=== PATIENT | male | born 1960 | race African-American/Black ===

== ENCOUNTER 2020-09-18 08:29 | Inpatient (IN) | payer OTHER ==
[2020-09-18 09:17] VITALS: BMI 34.4
[2020-09-18] MEDS ORDERED: METHOCARBAMOL 500 MG TABLET PO PRN (09:33)
[2020-09-18] MEDS ORDERED: MAGNESIUM HYDROX 2400MG/30ML ORAL SUSPENSION 30 ML CUP PO PRN (09:33)
[2020-09-18] MEDS ORDERED: MAG HYDROX/AL HYDROX/SIMETH 30 ML UNIT-DOSE CUP PO PRN (09:33)
[2020-09-18] MEDS ORDERED: ACETAMINOPHEN 325 MG TABLET (FP) PO PRN ×2 (09:33)
[2020-09-18] MEDS ORDERED: MAGNESIUM CITRATE 300 ML BOTTLE PO PRN (09:33)
[2020-09-18] MEDS ORDERED: MENTHOL/PHENOL 1 EACH UD MM PRN (09:33)
[2020-09-18] MEDS ORDERED: IBUPROFEN 400 MG TABLET (FP) PO PRN (09:33)
[2020-09-18] MEDS ORDERED: ONDANSETRON *ODT* 4 MG TABLET SL PRN (09:33)
[2020-09-18] MEDS ORDERED: NICOTINE POLACRILEX 2 MG GUM BUC PRN (09:33)
[2020-09-18] MEDS ORDERED: BISMUTH SUBSALICYLATE 262 MG/15 ML BTL PO PRN (09:33)
[2020-09-18] MEDS ORDERED: chlordiazePOXIDE HCL 25 MG CAPSULE PO PRN (09:33)
[2020-09-18] MEDS ORDERED: ONDANSETRON *ODT* 4 MG TABLET SL ONE (09:36)
[2020-09-18] MEDS: HYDROCHLOROTHIAZIDE 25 MG TABLET (FP) PO SCH (11:27)
[2020-09-18] MEDS: hydrOXYzine PAMOATE 25 MG CAPSULE (FP) PO SCH ×4 (11:27→22:37)
[2020-09-18] MEDS: chlordiazePOXIDE HCL 25 MG CAPSULE PO SCH ×3 (11:27→22:36)
[2020-09-18] MEDS: PRENATAL VITAMINS W/ FOLIC ACID TABLET (FP) PO SCH (11:29)
[2020-09-18] MEDS: NICOTINE 7 MG/24 HOURS TOPICAL PATCH TD SCH (11:29)
[2020-09-18] MEDS: CHOLESTYRAMINE/SUCROSE 4 GM PACKET PO SCH (11:33)
[2020-09-18 13:15] LABS: POTASSIUM 4.3 mmol/L (3.5-5.1)
[2020-09-18 13:18] LABS: HEMATOCRIT 36.7 % (35.4-49); HEMOGLOBIN 11.7 GM/dL (11.7-16.9); MCH 27.6 pg (25.7-33.7); MEAN CELL VOLUME 86.3 fl (80-96); MEAN PLT VOLUME 8.5 fl (7.5-11.1); PLATELET COUNT 232 K/MM3 (134-434); RBC 4.25 M/mm3 (4.00-5.60); RDW 16.4 % (11.9-15.9); WHITE BLOOD COUNT 11.1 K/mm3 (4.0-10.0)
[2020-09-18 13:22] LABS: ALBUMIN 3.7 g/dl (3.4-5.0); BLOOD UREA NITROGEN 8.6 mg/dL (7-18); CALCIUM 8.7 mg/dL (8.5-10.1)
[2020-09-18 13:25] LABS: CREATININE 0.9 mg/dL (0.55-1.3)
[2020-09-18 13:27] LABS: BILIRUBIN,TOTAL 0.8 mg/dL (0.2-1)
[2020-09-18 14:11] LABS: HIV INTERPRETATION NEGATIVE (NEGATIVE)
[2020-09-18] MEDS: MELATONIN 5 MG TABLETS PO SCH (22:36)
[2020-09-18] MEDS: THIAMINE HCL 100 MG TABLET (FP) PO SCH (22:37)
[2020-09-19] MEDS: chlordiazePOXIDE HCL 25 MG CAPSULE PO SCH ×4 (05:45→22:10)
[2020-09-19] MEDS: hydrOXYzine PAMOATE 25 MG CAPSULE (FP) PO SCH ×2 (05:45→10:36)
[2020-09-19] MEDS: HYDROCHLOROTHIAZIDE 25 MG TABLET (FP) PO SCH (10:36)
[2020-09-19] MEDS: PRENATAL VITAMINS W/ FOLIC ACID TABLET (FP) PO SCH (10:36)
[2020-09-19] MEDS: NICOTINE 7 MG/24 HOURS TOPICAL PATCH TD SCH (10:36)
[2020-09-19] MEDS ORDERED: ALBUTEROL SO4 HFA INHALER IH PRN (13:14)
[2020-09-19] MEDS ORDERED: hydrOXYzine PAMOATE 25 MG CAPSULE (FP) PO PRN (13:16)
[2020-09-19] MEDS: CHOLESTYRAMINE/SUCROSE 4 GM PACKET PO SCH (15:19)
[2020-09-19] MEDS: metFORMIN HCL 500 MG TABLET (FP) PO SCH (17:31)
[2020-09-19] MEDS: MELATONIN 5 MG TABLETS PO SCH (22:10)
[2020-09-19] MEDS: THIAMINE HCL 100 MG TABLET (FP) PO SCH (22:10)
[2020-09-20] MEDS: chlordiazePOXIDE HCL 25 MG CAPSULE PO SCH ×4 (06:23→22:40)
[2020-09-20] MEDS: metFORMIN HCL 500 MG TABLET (FP) PO SCH ×2 (06:23→17:10)
[2020-09-20] MEDS: CHOLESTYRAMINE/SUCROSE 4 GM PACKET PO SCH (10:52)
[2020-09-20] MEDS: PRENATAL VITAMINS W/ FOLIC ACID TABLET (FP) PO SCH (10:52)
[2020-09-20] MEDS: HYDROCHLOROTHIAZIDE 25 MG TABLET (FP) PO SCH (10:52)
[2020-09-20] MEDS: NICOTINE 7 MG/24 HOURS TOPICAL PATCH TD SCH (10:54)
[2020-09-20] MEDS ORDERED: LISINOPRIL 10 MG TABLET PO ONE (16:44)
[2020-09-20] MEDS: INSULIN SLIDING SCALE (NOVOLOG) 1 VIAL SQ SCH (17:10)
[2020-09-20] MEDS ORDERED: METOPROLOL TARTRATE 50 MG TABLET (FP) PO ONE (19:26)
[2020-09-20] MEDS: MELATONIN 5 MG TABLETS PO SCH (22:41)
[2020-09-20] MEDS: THIAMINE HCL 100 MG TABLET (FP) PO SCH (22:41)
[2020-09-21] MEDS ORDERED: chlordiazePOXIDE HCL 10 MG CAPSULE PO PRN
[2020-09-21] MEDS: chlordiazePOXIDE HCL 10 MG CAPSULE PO SCH ×2 (06:02→10:24)
[2020-09-21] MEDS: metFORMIN HCL 500 MG TABLET (FP) PO SCH (06:02)
[2020-09-21] MEDS: INSULIN SLIDING SCALE (NOVOLOG) 1 VIAL SQ SCH (07:48)
[2020-09-21 09:26] VITALS: BP 129/87; PULSE 78; TEMP 97.1
[2020-09-21] MEDS: CHOLESTYRAMINE/SUCROSE 4 GM PACKET PO SCH (09:45)
[2020-09-21] MEDS: NICOTINE 7 MG/24 HOURS TOPICAL PATCH TD SCH (09:45)
[2020-09-21] MEDS: PRENATAL VITAMINS W/ FOLIC ACID TABLET (FP) PO SCH (09:45)
[2020-09-21] MEDS: HYDROCHLOROTHIAZIDE 25 MG TABLET (FP) PO SCH (09:45)
[2020-09-21] MEDS ORDERED: LISINOPRIL 10 MG TABLET PO SCH (10:00)
[2020-09-22] MEDS ORDERED: chlordiazePOXIDE HCL 10 MG CAPSULE PO SCH (05:00)
[2020-09-23] MEDS ORDERED: chlordiazePOXIDE HCL 10 MG CAPSULE PO ONE (05:00)
== END 2020-09-21 11:33 | disposition home or self-care (01) | DRG 774 ==
LOC: YASAS 08:29 → Y3N 09:41
PROVIDERS: ADMIT Allergy & Immunology; ATTEND Allergy & Immunology
PROC: HZ2ZZZZ Detoxification Services for Substance Abuse Treatment (ICD-10-PCS; principal; 2020-09-18)
DX: F10.230 Alcohol dependence with withdrawal, uncomplicated (principal); F14.20 Cocaine dependence, uncomplicated; F17.210 Nicotine dependence, cigarettes, uncomplicated; F19.24 Other psychoactive substance dependence with psychoactive substance-induced mood disorder; F31.89 Other bipolar disorder; F41.1 Generalized anxiety disorder; I10 Essential (primary) hypertension; E11.9 Type 2 diabetes mellitus without complications; Z79.84 Long term (current) use of oral hypoglycemic drugs
CPT/HCPCS: 36415; 71046-TC-FY; 80053; 82962; 85027; 86780; 87389; 93005; 93010; C9803; Q0162; U0003

== ENCOUNTER 2021-02-09 11:54 | Observation (INO) | payer OTHER ==
[2021-02-09] MEDS ORDERED: LORazepam 2 MG/ML SDV VIAL IVPUSH ONE ×2 (12:31→14:04)
[2021-02-09] MEDS ORDERED: ASPIRIN 81 MG CHEWABLE TABLETS PO ONE (12:31)
[2021-02-09] MEDS ORDERED: diazePAM CARPU-JECT 10 MG/2 ML DISP.SYRIN IVPUSH ONE (12:33)
[2021-02-09] MEDS ORDERED: diazePAM CARPU-JECT 10 MG/2 ML DISP.SYRIN ONE (12:38)
[2021-02-09] MEDS ORDERED: ASPIRIN 81 MG CHEWABLE TABLETS ONE ×2 (12:38→13:04)
[2021-02-09 13:25] LABS: BASO % 0.5 % (0-2.0); EOS % 1.1 % (0-4.5); HEMATOCRIT 37.8 % (35.4-49); HEMOGLOBIN 12.6 GM/dL (11.7-16.9); LYMPH % 26.6 % (8-40); MCH 28.7 pg (25.7-33.7); MCHC 33.4 g/dl (32.0-35.9); MEAN CELL VOLUME 85.9 fl (80-96); MEAN PLT VOLUME 7.9 fl (7.5-11.1); MONO % 7.8 % (3.8-10.2); PLATELET COUNT 284 K/MM3 (134-434); WHITE BLOOD COUNT 9.1 K/mm3 (4.0-10.0)
[2021-02-09 13:50] LABS: CHLORIDE 107 mmol/L (98-107); SODIUM 138 mmol/L (136-145)
[2021-02-09 13:52] LABS: CALCIUM 9.1 mg/dL (8.5-10.1)
[2021-02-09 13:53] LABS: ALBUMIN 3.4 g/dl (3.4-5.0); ANION GAP 6 MMOL/L (8-16); BLOOD UREA NITROGEN 7.7 mg/dL (7-18); CO2 25 mmol/L (21-32); GLUCOSE,RANDOM 146 mg/dL (74-106)
[2021-02-09 13:56] LABS: CREATININE 0.9 mg/dL (0.55-1.3); SGOT/AST 25 U/L (15-37); SGPT/ALT 30 U/L (13-61)
[2021-02-09 13:57] LABS: BILIRUBIN,TOTAL 0.2 mg/dL (0.2-1)
[2021-02-09 13:58] LABS: TOT PROT 7.7 g/dl (6.4-8.2)
[2021-02-09 13:59] LABS: ALK PHOS 87 U/L (45-117)
[2021-02-09] MEDS ORDERED: LORazepam 2 MG/ML SDV VIAL ONE (14:13)
[2021-02-09] MEDS ORDERED: cloNIDine HCL 0.1 MG TABLET PO PRN (15:32)
[2021-02-09] MEDS ORDERED: chlordiazePOXIDE HCL 25 MG CAPSULE PO PRN (15:32)
[2021-02-09] MEDS ORDERED: METHADONE HCL 10 MG TABLET PO ONE (16:00)
[2021-02-09] MEDS ORDERED: chlordiazePOXIDE HCL 25 MG CAPSULE ONE ×2 (16:10→22:53)
[2021-02-09] MEDS: chlordiazePOXIDE HCL 25 MG CAPSULE PO SCH ×2 (16:27→23:02)
[2021-02-09] MEDS ORDERED: FOLIC ACID INJECTION - 1 MG, THIAMINE HCL 100 MG, MULTIVIT INJECTION ADULT 10 ML in SOD... IVPB ONE (19:00)
[2021-02-09 21:36] LABS: URINE APPEARANCE CLEAR; URINE BILIRUBIN NEGATIVE (NEGATIVE); URINE COLOR YELLOW; URINE GLUCOSE (UA) 3+ (NEGATIVE); URINE KETONE TRACE (NEGATIVE); URINE LEUK ESTERASE NEGATIVE (NEGATIVE); URINE NITRITE NEGATIVE (NEGATIVE); URINE PROTEIN NEGATIVE (NEGATIVE); URINE UROBILINOGEN 0.2 mg/dL (0.2-1.0)
[2021-02-09 21:55] LABS: URINE BARBITURATES NEGATIVE ng/ml (CUTOFF=200)
[2021-02-09 21:56] LABS: OPIATES, URI NEGATIVE ng/ml (CUTOFF=300); PHENCYCLIDINE,URINE NEGATIVE ng/ml (CUTOFF=25)
[2021-02-09 22:00] LABS: URINE AMPHETAMINES NEGATIVE ng/ml (CUTOFF=500)
[2021-02-09 22:01] LABS: COCAINE, UR POSITIVE ng/ml (CUTOFF=300); METHADONE, UR POSITIVE ng/ml (CUTOFF=300); URINE BENZODIAZEPINES POSITIVE ng/ml (CUTOFF=200)
[2021-02-09] MEDS: INSULIN SLIDING SCALE (NOVOLOG) 1 VIAL SQ SCH (23:05)
[2021-02-10] MEDS ORDERED: chlordiazePOXIDE HCL 25 MG CAPSULE ONE ×4 (04:55→17:54)
[2021-02-10] MEDS: chlordiazePOXIDE HCL 25 MG CAPSULE PO SCH ×4 (04:57→22:40)
[2021-02-10 07:19] LABS: HEMATOCRIT 36.8 % (35.4-49); MCH 28.3 pg (25.7-33.7); MCHC 32.6 g/dl (32.0-35.9); MEAN CELL VOLUME 86.8 fl (80-96); MEAN PLT VOLUME 9.1 fl (7.5-11.1); PLATELET COUNT 237 K/MM3 (134-434); RBC 4.24 M/mm3 (4.00-5.60); WHITE BLOOD COUNT 7.1 K/mm3 (4.0-10.0)
[2021-02-10 07:37] LABS: CHLORIDE 110 mmol/L (98-107); SODIUM 140 mmol/L (136-145)
[2021-02-10 07:44] LABS: BLOOD UREA NITROGEN 15.8 mg/dL (7-18); CALCIUM 8.9 mg/dL (8.5-10.1)
[2021-02-10 07:45] LABS: ANION GAP 3 MMOL/L (8-16); CO2 27 mmol/L (21-32); GLUCOSE,RANDOM 114 mg/dL (74-106)
[2021-02-10 07:47] LABS: CREATININE 0.8 mg/dL (0.55-1.3)
[2021-02-10 07:48] LABS: BILIRUBIN,TOTAL 0.3 mg/dL (0.2-1); PHOSPHOROUS 4.2 mg/dL (2.5-4.9); SGOT/AST 17 U/L (15-37); SGPT/ALT 24 U/L (13-61)
[2021-02-10 07:50] LABS: ALK PHOS 79 U/L (45-117)
[2021-02-10] MEDS: INSULIN SLIDING SCALE (NOVOLOG) 1 VIAL SQ SCH ×4 (08:46→22:43)
[2021-02-10] MEDS: ENOXAPARIN NA (PORCINE) 40 MG/0.4 ML DISP.SYRIN SQ SCH (10:00)
[2021-02-10] MEDS ORDERED: METHADONE 20 MG, METHADONE 5 MG PO ONE (10:00)
[2021-02-10] MEDS: amLODIPine BESYLATE 5 MG TABLET (FP) PO SCH (10:30)
[2021-02-10] MEDS ORDERED: METHADONE HCL 10 MG TABLET ONE (10:45)
[2021-02-10] MEDS ORDERED: ENOXAPARIN NA (PORCINE) 40 MG/0.4 ML DISP.SYRIN SQ ONE (10:46)
[2021-02-10] MEDS ORDERED: amLODIPine BESYLATE 5 MG TABLET (FP) ONE (10:46)
[2021-02-10] MEDS ORDERED: METHADONE HCL 5 MG TABLET ONE (10:46)
[2021-02-10] MEDS ORDERED: ALBUTEROL SO4 HFA INHALER IH PRN (18:27)
[2021-02-10] MEDS ORDERED: MELATONIN 5 MG TABLETS PO PRN (21:49)
[2021-02-11 00:17] VITALS: BMI 32.9
[2021-02-11] MEDS: chlordiazePOXIDE HCL 25 MG CAPSULE PO SCH ×2 (05:12→11:37)
[2021-02-11] MEDS: INSULIN SLIDING SCALE (NOVOLOG) 1 VIAL SQ SCH ×2 (06:17→11:36)
[2021-02-11] MEDS ORDERED: PNEUMOC 13-VAL CONJ-DIP CRM/PF 0.5 ML DISP.SYRIN IM ONE (07:12)
[2021-02-11 07:32] LABS: HEMATOCRIT 35.3 % (35.4-49); HEMOGLOBIN 11.7 GM/dL (11.7-16.9); MCH 28.8 pg (25.7-33.7); MCHC 33.1 g/dl (32.0-35.9); MEAN CELL VOLUME 86.9 fl (80-96); MEAN PLT VOLUME 8.7 fl (7.5-11.1); PLATELET COUNT 277 K/MM3 (134-434); RBC 4.06 M/mm3 (4.00-5.60); WHITE BLOOD COUNT 7.5 K/mm3 (4.0-10.0)
[2021-02-11 07:56] LABS: ALBUMIN 2.9 g/dl (3.4-5.0); BLOOD UREA NITROGEN 9.9 mg/dL (7-18); CALCIUM 9.2 mg/dL (8.5-10.1); MAGNESIUM 1.9 mg/dL (1.8-2.4)
[2021-02-11 08:00] LABS: CREATININE 0.8 mg/dL (0.55-1.3); PHOSPHOROUS 3.5 mg/dL (2.5-4.9)
[2021-02-11 08:01] LABS: BILIRUBIN,TOTAL 0.4 mg/dL (0.2-1)
[2021-02-11 08:02] LABS: TOT PROT 6.7 g/dl (6.4-8.2)
[2021-02-11] MEDS ORDERED: PT OWN MED DRAWER 7, Y5N ONE (08:42)
[2021-02-11] MEDS ORDERED: METHADONE HCL 10 MG TABLET PO ONE (10:00)
[2021-02-11] MEDS ORDERED: LIDOCAINE HCL 1%, 10 MG/ML (50 mL VIAL) SQ ONE (10:00)
[2021-02-11] MEDS ORDERED: PANTOPRAZOLE 40 MG TABLET PO SCH (10:00)
[2021-02-11] MEDS ORDERED: THIAMINE HCL 100 MG TABLET (FP) PO SCH (10:00)
[2021-02-11] MEDS ORDERED: methylPREDNISolone ACET (DEPO) 80 MG/1 ML VIAL IAR ONE (10:00)
[2021-02-11] MEDS ORDERED: ASPIRIN COATED 81 MG TABLET.EC PO SCH (10:00)
[2021-02-11] MEDS ORDERED: FOLIC ACID 1 MG TABLET (FP) PO SCH (10:00)
[2021-02-11] MEDS ORDERED: MULTIVITAMINS (DAILY MVI) TABLET (FP) PO SCH (10:00)
[2021-02-11 10:12] VITALS: BP 149/86; PULSE 89; TEMP 98.3
[2021-02-11] MEDS: ENOXAPARIN NA (PORCINE) 40 MG/0.4 ML DISP.SYRIN SQ SCH (10:43)
[2021-02-11] MEDS: amLODIPine BESYLATE 5 MG TABLET (FP) PO SCH (10:43)
[2021-02-12] MEDS ORDERED: chlordiazePOXIDE HCL 10 MG CAPSULE PO PRN
[2021-02-12] MEDS ORDERED: chlordiazePOXIDE HCL 10 MG CAPSULE PO SCH (05:00)
[2021-02-12] MEDS ORDERED: METHADONE 10 MG, METHADONE 5 MG PO ONE (10:00)
[2021-02-13] MEDS ORDERED: chlordiazePOXIDE HCL 10 MG CAPSULE PO SCH (05:00)
[2021-02-13] MEDS ORDERED: METHADONE HCL 10 MG TABLET PO ONE (10:00)
[2021-02-14] MEDS ORDERED: chlordiazePOXIDE HCL 10 MG CAPSULE PO ONE (05:00)
[2021-02-14] MEDS ORDERED: METHADONE HCL 5 MG TABLET PO ONE (06:00)
== END 2021-02-11 14:32 | disposition left against medical advice (07) ==
LOC: JER 11:54 → JERBED 12:32 → J4W 02-10 21:22
PROVIDERS: ADMIT Internal Medicine; ATTEND Internal Medicine
PROC: 3E033NZ Introduction of Analgesics, Hypnotics, Sedatives into Peripheral Vein, Percutaneous Approach (ICD-10-PCS; principal; 2021-02-09)
PROC: 3E013VG Introduction of Insulin into Subcutaneous Tissue, Percutaneous Approach (ICD-10-PCS; 2021-02-09)
PROC: 3E033GC Introduction of Other Therapeutic Substance into Peripheral Vein, Percutaneous Approach (ICD-10-PCS; 2021-02-09)
DX: F14.90 Cocaine use, unspecified, uncomplicated (principal); I73.89 Other specified peripheral vascular diseases; F11.20 Opioid dependence, uncomplicated; I10 Essential (primary) hypertension; M25.461 Effusion, right knee; E78.5 Hyperlipidemia, unspecified; E11.9 Type 2 diabetes mellitus without complications; F19.10 Other psychoactive substance abuse, uncomplicated; F17.210 Nicotine dependence, cigarettes, uncomplicated; J45.909 Unspecified asthma, uncomplicated
CPT/HCPCS: 36415; 71045-TC-FY; 73562-TC-RT-FY; 80053; 80307; 81003; 82607; 82746; 82962; 83036; 83690; 83735; 84100; 84443; 84484; 85025; 85027; 93005; 93010; 93306-TC; 96365; 96372; 96375; 99285-25; C9803; G0378; U0003; U0005

== ENCOUNTER 2021-04-04 17:14 | Inpatient (IN) | payer OTHER ==
[2021-04-04 18:28] VITALS: BMI 34.7
[2021-04-04] MEDS ORDERED: ACETAMINOPHEN 325 MG TABLET (FP) PO PRN ×2 (21:32)
[2021-04-04] MEDS ORDERED: MAGNESIUM CITRATE 300 ML BOTTLE PO PRN (21:32)
[2021-04-04] MEDS ORDERED: BISMUTH SUBSALICYLATE 524 MG/30 ML PO PRN (21:32)
[2021-04-04] MEDS ORDERED: MAG HYDROX/AL HYDROX/SIMETH 30 ML UNIT-DOSE CUP PO PRN (21:32)
[2021-04-04] MEDS ORDERED: ONDANSETRON *ODT* 4 MG TABLET SL PRN (21:32)
[2021-04-04] MEDS ORDERED: NICOTINE POLACRILEX 2 MG GUM BUC PRN (21:32)
[2021-04-04] MEDS ORDERED: MAGNESIUM HYDROX 2400MG/30ML ORAL SUSPENSION 30 ML CUP PO PRN (21:32)
[2021-04-04] MEDS ORDERED: MENTHOL/PHENOL 1 EACH UD MM PRN (21:32)
[2021-04-04] MEDS ORDERED: LORazepam 1 MG TABLET PO PRN (21:32)
[2021-04-04] MEDS ORDERED: ALBUTEROL SO4 HFA INHALER IH PRN (21:36)
[2021-04-05] MEDS: hydrOXYzine PAMOATE 25 MG CAPSULE (FP) PO SCH ×6 (00:47→22:55)
[2021-04-05] MEDS: LORazepam 2 MG TABLET PO SCH ×3 (00:47→10:48)
[2021-04-05] MEDS: MELATONIN 5 MG TABLETS PO SCH ×2 (00:48→22:51)
[2021-04-05] MEDS: THIAMINE HCL 100 MG TABLET (FP) PO SCH ×2 (00:49→22:51)
[2021-04-05] MEDS: PRENATAL VITAMINS W/ FOLIC ACID TABLET (FP) PO SCH ×2 (00:49→10:45)
[2021-04-05] MEDS: HYDROCHLOROTHIAZIDE 25 MG TABLET (FP) PO SCH ×3 (01:02→22:52)
[2021-04-05 10:13] LABS: MCH 27.2 pg (25.7-33.7); MCHC 32.4 g/dl (32.0-35.9); MEAN PLT VOLUME 8.2 fl (7.5-11.1); PLATELET COUNT 333 10^3/uL (134-434); RBC 4.05 M/mm3 (4.00-5.60); RDW 18.8 % (11.9-15.9); WHITE BLOOD COUNT 7.5 K/mm3 (4.0-10.0)
[2021-04-05 10:18] LABS: CALCIUM 8.7 mg/dL (8.5-10.1)
[2021-04-05 10:19] LABS: BLOOD UREA NITROGEN 13.5 mg/dL (7-18)
[2021-04-05 10:22] LABS: CREATININE 0.8 mg/dL (0.55-1.3)
[2021-04-05 10:29] LABS: BILIRUBIN,TOTAL 0.7 mg/dL (0.2-1)
[2021-04-05] MEDS: NICOTINE 14 MG/24 HOURS TOPICAL PATCH TD SCH (10:45)
[2021-04-05] MEDS ORDERED: HYDROCHLOROTHIAZIDE 25 MG TABLET (FP) PO SCH (14:00)
[2021-04-05] MEDS: amLODIPine BESYLATE 10 MG TABLET (FP) PO SCH (14:17)
[2021-04-05] MEDS ORDERED: LORazepam 2 MG TABLET PO SCH (17:00)
[2021-04-05] MEDS: metFORMIN HCL 500 MG TABLET (FP) PO SCH (17:38)
[2021-04-05] MEDS: IBUPROFEN 400 MG TABLET (FP) PO PRN (17:39)
[2021-04-05] MEDS: METHOCARBAMOL 500 MG TABLET PO PRN (17:40)
[2021-04-05] MEDS: LORazepam 1 MG TABLET PO SCH ×2 (17:40→22:55)
[2021-04-05] MEDS: INSULIN SLIDING SCALE (NOVOLOG) 1 VIAL SQ SCH (17:41)
[2021-04-06] MEDS ORDERED: LORazepam 1 MG TABLET PO SCH ×2 (05:00)
[2021-04-06] MEDS: LORazepam 0.5 MG TABLET PO SCH ×3 (05:19→22:03)
[2021-04-06] MEDS: hydrOXYzine PAMOATE 25 MG CAPSULE (FP) PO SCH ×5 (05:19→22:04)
[2021-04-06] MEDS: metFORMIN HCL 500 MG TABLET (FP) PO SCH ×2 (08:44→17:07)
[2021-04-06] MEDS: INSULIN SLIDING SCALE (NOVOLOG) 1 VIAL SQ SCH ×2 (08:45→17:07)
[2021-04-06] MEDS: amLODIPine BESYLATE 10 MG TABLET (FP) PO SCH (10:53)
[2021-04-06] MEDS: METHOCARBAMOL 500 MG TABLET PO PRN ×2 (10:53→17:09)
[2021-04-06] MEDS: HYDROCHLOROTHIAZIDE 25 MG TABLET (FP) PO SCH ×2 (10:53→22:03)
[2021-04-06] MEDS: NICOTINE 14 MG/24 HOURS TOPICAL PATCH TD SCH (10:53)
[2021-04-06] MEDS: PRENATAL VITAMINS W/ FOLIC ACID TABLET (FP) PO SCH (10:54)
[2021-04-06] MEDS: IBUPROFEN 400 MG TABLET (FP) PO PRN (17:09)
[2021-04-06] MEDS ORDERED: INSULIN (NOVOLOG) ASPART 100 UNITS/ML 10ML VIAL ONE (17:11)
[2021-04-06] MEDS: MELATONIN 5 MG TABLETS PO SCH (22:02)
[2021-04-06] MEDS: THIAMINE HCL 100 MG TABLET (FP) PO SCH (22:04)
[2021-04-07] MEDS ORDERED: LORazepam 0.5 MG TABLET PO PRN
[2021-04-07] MEDS ORDERED: LORazepam 0.5 MG TABLET PO SCH (05:00)
[2021-04-07] MEDS: LORazepam 0.5 MG TABLET PO SCH ×2 (05:46→17:38)
[2021-04-07] MEDS: hydrOXYzine PAMOATE 25 MG CAPSULE (FP) PO SCH ×5 (05:46→22:13)
[2021-04-07] MEDS: metFORMIN HCL 500 MG TABLET (FP) PO SCH ×2 (07:38→16:30)
[2021-04-07] MEDS: INSULIN SLIDING SCALE (NOVOLOG) 1 VIAL SQ SCH ×2 (07:39→17:37)
[2021-04-07] MEDS ORDERED: INSULIN (NOVOLOG) ASPART 100 UNITS/ML 10ML VIAL ONE ×2 (07:43→17:25)
[2021-04-07] MEDS: amLODIPine BESYLATE 10 MG TABLET (FP) PO SCH (10:25)
[2021-04-07] MEDS: NICOTINE 14 MG/24 HOURS TOPICAL PATCH TD SCH (10:25)
[2021-04-07] MEDS: PRENATAL VITAMINS W/ FOLIC ACID TABLET (FP) PO SCH (10:25)
[2021-04-07] MEDS: HYDROCHLOROTHIAZIDE 25 MG TABLET (FP) PO SCH ×2 (10:25→22:13)
[2021-04-07] MEDS: IBUPROFEN 400 MG TABLET (FP) PO PRN ×2 (10:34→22:14)
[2021-04-07] MEDS: THIAMINE HCL 100 MG TABLET (FP) PO SCH (22:12)
[2021-04-07] MEDS: MELATONIN 5 MG TABLETS PO SCH (22:13)
[2021-04-08] MEDS ORDERED: LORazepam 0.5 MG TABLET PO ONE (05:00)
[2021-04-08 06:21] VITALS: BP 128/73; PULSE 82; TEMP 96.9
[2021-04-08] MEDS: metFORMIN HCL 500 MG TABLET (FP) PO SCH (06:26)
[2021-04-08] MEDS: hydrOXYzine PAMOATE 25 MG CAPSULE (FP) PO SCH ×2 (06:48→09:24)
[2021-04-08] MEDS: IBUPROFEN 400 MG TABLET (FP) PO PRN (06:51)
[2021-04-08] MEDS: INSULIN SLIDING SCALE (NOVOLOG) 1 VIAL SQ SCH (07:54)
[2021-04-08] MEDS: amLODIPine BESYLATE 10 MG TABLET (FP) PO SCH (09:24)
[2021-04-08] MEDS: NICOTINE 14 MG/24 HOURS TOPICAL PATCH TD SCH (09:24)
[2021-04-08] MEDS: HYDROCHLOROTHIAZIDE 25 MG TABLET (FP) PO SCH (09:24)
[2021-04-08] MEDS: PRENATAL VITAMINS W/ FOLIC ACID TABLET (FP) PO SCH (09:24)
== END 2021-04-08 09:00 | disposition home or self-care (01) | DRG 774 ==
LOC: YASAS 17:14 → Y6N 22:37
PROVIDERS: ADMIT Allergy & Immunology; ATTEND Allergy & Immunology
PROC: HZ2ZZZZ Detoxification Services for Substance Abuse Treatment (ICD-10-PCS; principal; 2021-04-04)
DX: F10.230 Alcohol dependence with withdrawal, uncomplicated (principal); F14.20 Cocaine dependence, uncomplicated; F17.210 Nicotine dependence, cigarettes, uncomplicated; F31.9 Bipolar disorder, unspecified; F41.1 Generalized anxiety disorder; I10 Essential (primary) hypertension; J45.909 Unspecified asthma, uncomplicated; E78.5 Hyperlipidemia, unspecified; Z79.84 Long term (current) use of oral hypoglycemic drugs; M17.11 Unilateral primary osteoarthritis, right knee; Z99.89 Dependence on other enabling machines and devices
CPT/HCPCS: 36415; 80053; 82962; 85027; 86780; C9803; U0003; U0005